=== PATIENT | male | born 2000 | race Caucasian/White ===

== ENCOUNTER → 2022-05-05 | Outpatient (CLI) | payer BC | LOC: EXRD 15:54 → CT 05-07 09:30 | DX: M25.512 Pain in left shoulder (principal) | CPT/HCPCS: 73030 ==

== ENCOUNTER → 2022-05-07 | Outpatient (CLI) | payer BC | LOC: CT 08:45 | DX: R10.9 Unspecified abdominal pain (principal); M79.89 Other specified soft tissue disorders | CPT/HCPCS: Q9967 ==

== ENCOUNTER → 2022-05-13 | Outpatient (CLI) | payer BC | LOC: HEART 5 08:55 | DX: J45.909 Unspecified asthma, uncomplicated (principal) | CPT/HCPCS: 94010 ==